=== PATIENT | female | born 1995 | race Caucasian/White ===

== ENCOUNTER 2022-09-12 20:50 | Emergency (ER) | payer OTHER ==
[~2022-09-12] VITALS: Ht 172.7 cm; Wt 68.0 kg
[2022-09-12 21:58] VITALS: BP 135/70
--- NOTE | 2022-09-12 22:12 | NUR ---
SENIOR PRICING ANALYST AT PT'S BEDSIDE
[2022-09-12] MEDS ORDERED: HYDROCODONE/APAP 7.5/325MG 1 EACH TABLET PO ONE (22:30)
[2022-09-12] MEDS ORDERED: HYDROCODONE/APAP 10/325MG TABLET ONE (22:31)
[2022-09-12] MEDS ORDERED: IBUP-1953 PO (22:41)
--- NOTE | 2022-09-12 23:14 | NUR ---
VOLAR SPLINT APPLIED TO PT'S LFA
--- NOTE | 2022-09-12 23:18 | NUR ---
Patient discharged to home in stable condition. Written and verbal after care instructions given. Patient verbalizes understanding of instruction.
== END 2022-09-12 23:27 | disposition home or self-care (01) ==
LOC: ER 20:58
DX: S52.522A Torus fracture of lower end of left radius, initial encounter for closed fracture (principal); Z60.2 Problems related to living alone; V43.02XA Car driver injured in collision with other type car in nontraffic accident, initial encounter; W22.11XA Striking against or struck by driver side automobile airbag, initial encounter; Y93.89 Activity, other specified; Y92.89 Other specified places as the place of occurrence of the external cause; Y99.8 Other external cause status
CPT/HCPCS: 73110